=== PATIENT | female | born 1935 | race Caucasian/White ===

== ENCOUNTER 2016-07-23 17:41 | Emergency (ER) | payer MEDICARE ==
[~2016-07-23] VITALS: Ht 157.5 cm; Wt 65.8 kg
[2016-07-23] MEDS ORDERED: DULO30CA2 PO (18:09)
[2016-07-23] MEDS ORDERED: LEVO112T2 PO (18:09)
[2016-07-23] MEDS ORDERED: SIMV10TA2 PO (18:09)
[2016-07-23] MEDS ORDERED: AMLO5TAB2 PO (18:09)
[2016-07-23] MEDS ORDERED: ZOLP5TAB2 PO (18:09)
[2016-07-23] MEDS ORDERED: ACET1TAB14 PO (18:09)
[2016-07-23] MEDS ORDERED: HYDR-3641 PO (18:09)
[2016-07-23] MEDS ORDERED: CARI250T PO (18:09)
[2016-07-23] MEDS ORDERED: OMEP20TA20 PO (18:09)
[2016-07-23] MEDS ORDERED: RANI300T4 PO (18:09)
[2016-07-23] MEDS ORDERED: AMLO10TA2 (18:09)
--- NOTE | 2016-07-23 19:30 | NUR ---
Patient discharged to home in stable conditon. Written and verbal after care instructions given. Patient verbalizes understanding of instructions.
== END 2016-07-23 19:31 | disposition home or self-care (01) ==
LOC: ER 17:46
DX: S92.902A Unspecified fracture of left foot, initial encounter for closed fracture (principal); I10 Essential (primary) hypertension; E78.00 Pure hypercholesterolemia, unspecified; F32.9 Major depressive disorder, single episode, unspecified; F41.9 Anxiety disorder, unspecified; E03.9 Hypothyroidism, unspecified; M19.90 Unspecified osteoarthritis, unspecified site; Z90.710 Acquired absence of both cervix and uterus; Z88.0 Allergy status to penicillin; Z88.8 Allergy status to other drugs, medicaments and biological substances; X58.XXXA Exposure to other specified factors, initial encounter; Y93.89 Activity, other specified; Y99.8 Other external cause status; Y92.89 Other specified places as the place of occurrence of the external cause
CPT/HCPCS: 73630; A4663